=== PATIENT | female | born 1965 | race Caucasian/White ===

== ENCOUNTER 2017-04-01 10:59 | Emergency (ER) | payer MEDICAID, OTHER ==
[~2017-04-01] VITALS: Wt 97.9 kg
[~2017-04-01 10:59] MED LIST: ALBU8.5H5 INH; AZIT250T94 PO; IBUP-1542 PO; MINERAL OIL; MYLANTA
--- NOTE | 2017-04-01 13:07 | ERD ---
ER Documentation Chief Complaint Chief Complaint LEFT HEEL PAIN X2 DAYS, NO INJURY HPI 51-year-old female presents emergency department for left heel pain for 2 days. Stated it is worse on his first step upon waking up in the morning. LMP: 6 months ago. A0. Patient is insisting x-ray of her left foot. Denies headache, dizziness, blurred vision, neck pain, shoulder pain, chest pain , back pain, abdominal pain, nausea, vomiting, constipation, diarrhea, loss of bowel and bladder control, urinary symptoms, recent long travel, recent exposure to any illness, numbness or tingling sensation, recent antibiotic use in the last 3 months, fever, chills. No known drug allergies. No past medical history. No surgeries. Does not take any prescription medication at home. 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 Denies smoking, use of alcoholic beverages, use of illegal drugs. ROS All systems reviewed and are negative except as per history of present illness. Medications Home Meds Active Scripts Tramadol HCl (Tramadol HCl) 50 Mg Tablet, 50 MG PO Q6, #15 TAB Prov:MINI OTT 04/01/17 Ibuprofen* (Motrin*) 800 Mg Tab, 800 MG PO Q8 Y for PAIN AND OR ELEVATED TEMP, # 30 TAB Prov:MINI OTT 04/01/17 Ibuprofen* (Motrin*) 600 Mg Tab, 600 MG PO Q6, #20 TAB Prov:ALISSA OLEARY PA-C 10/28/14 Albuterol Sulfate* (Albuterol Sulfate* HFA) 8.5 Gm Hfa.aer.ad, 1-2 PUFF INH Q4 Y for SHORTNESS OF BREATH, #1 EA Prov:ALISSA OLEARY PA-C 10/28/14 Azithromycin* (Zithromax*) 250 Mg Tablet, 250 MG PO .ZPACK DIRECTED, #6 TAB TAKE 500 MG (2 TABS) THE FIRST DAY THEN 250 MG (1 TAB) DAYS 2-5 Prov:ALISSA OLEARY PA-C 10/28/14 Reported Medications [Mylanta] No Conflict Check 10/01/09 [Mineral Oil] No Conflict Check 10/01/09 Allergies Allergies: Coded Allergies: No Known Allergies (Verified Allergy, Mild, 11/06/12) PMhx/Soc History of Surgery: Yes (APPENDECTOMY, 1999, HERNIA REPAIR 2003,C SECTION X3) Anesthesia Reaction: No Hx Neurological Disorder: No Hx Respiratory Disorders: No Hx Cardiac Disorders: No Hx Psychiatric Problems: No Hx Miscellaneous Medical Probl: No Hx Alcohol Use: No Hx Substance Use: No Hx Tobacco Use: No Physical Exam Vitals Vital Signs Date Time Temp Pulse Resp B/P Pulse Ox O2 Delivery O2 Flow Rate FiO2 04/01/17 11:03 98.2 82 17 135/74 98 Physical Exam Const: [] Head: Atraumatic Eyes: Normal Conjunctiva ENT: Normal External Ears, Nose and Mouth. Neck: Full range of motion..~ No meningismus. Resp: Clear to auscultation bilaterally Cardio: Regular rate and rhythm, no murmurs Abd: Soft, non tender, non distended. Normal bowel sounds Skin: No petechiae or rashes Back: No midline or flank tenderness Ext: No cyanosis, or edema. Right lower extremities unremarkable. Left heel/ plantar area has tenderness to palpation. Good pedal pulse to left foot. Left ankle is good and full range of motion without deformity. Dorsal area of the left foot has no deformity/tenderness/discoloration. No calf tenderness bilaterally. No discoloration of the calf. No calf edema bilaterally. No neurovascular deficits. Patient is ambulatory with steady gait. Neur: Awake and alert Psych: Normal Mood and Affect Results 24 hrs Current Medications Medications (Trade) Dose Ordered Sig/Natalie Route PRN Reason Start Time Stop Time Status Last Admin Dose Admin Ketorolac Tromethamine (Toradol) 60 mg ONCE STAT IM 04/01/17 13:30 04/01/17 13:31 DC 04/01/17 13:48 Procedures/MDM 51-year-old female presents emergency department for left heel pain for 2 days. Stated it is worse on his first step upon waking up in the morning. LMP: 6 months ago. A0. Patient is insisting x-ray of her left foot. Denies headache, dizziness, blurred vision, neck pain, shoulder pain, chest pain , back pain, abdominal pain, nausea, vomiting, constipation, diarrhea, loss of bowel and bladder control, urinary symptoms, recent long travel, recent exposure to any illness, numbness or tingling sensation, recent antibiotic use in the last 3 months, fever, chills. No known drug allergies. No past medical history. No surgeries. Does not take any prescription medication at home. 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 Denies smoking, use of alcoholic beverages, use of illegal drugs. Physical exam: Right lower extremities unremarkable. Left heel/plantar area has tenderness to palpation. Good pedal pulse to left foot. Left ankle is good and full range of motion without deformity. Dorsal area of the left foot has no deformity/tenderness/discoloration. No calf tenderness bilaterally. No discoloration of the calf. No calf edema bilaterally. No neurovascular deficits. Patient is ambulatory with steady gait. Disease process was explained to the patient and family member. Patient and family member verbalized understanding and agreed with the diagnostic test, plan of care, follow-up care. X-ray of the left foot: Plantar calcaneal spur. Otherwise unremarkable images of the left foot. Treatment: Toradol IM. Shaan wrap to left foot. Reevaluation: Denies headache, dizziness, blurry vision, neck pain, shoulder pain, chest pain, back pain, abdominal pain, nausea, vomiting. No episode of emesis in the emergency department. Alert and oriented 4. Speaks full and clear sentences. Respirations even and unlabored. Lung sounds clear to auscultation. Active bowel sounds. There is no right upper/right lower/ epigastric/left upper/left lower abdominal tenderness and light and deep palpation. No peritoneal signs. Ambulatory with steady gait. No neurovascular deficits prior to and after the application of Shaan wrap. No neurological deficits. Differential diagnosis: Fracture versus contusion versus sprain versus plantar fasciitis versus nontraumatic foot pain versus septic arthritis versus rheumatoid arthritis versus osteoarthritis Final diagnosis: Plantar fasciitis, nontraumatic foot pain, plantar calcaneal spur. Prescription: Motrin. Tramadol. Follow-up with PCP in the next 24-48 hours. PCP to refer patient to orthopedic doctor in the next 24-48 hours. PCP to refer patient to a cream separator operator in the next 24-48 hours. Come back here in the emergency department for any new symptoms or any worsening of symptoms. All questions and concerns are answered. Patient and family member verbalized understanding and agreed with the plan of care. Hemodynamically stable on discharge. . Departure Diagnosis: Primary Impression: Plantar fasciitis Additional Impression: Calcaneal spur of left foot Condition: Stable Additional Instructions: Follow-up with PCP in the next 24-48 hours. PCP to refer patient to orthopedic doctor in the next 24-48 hours. PCP to refer patient to a cream separator operator in the next 24-48 hours. Come back here in the emergency department for any new symptoms or any worsening of symptoms. All questions and concerns are answered. Patient and family member verbalized understanding and agreed with the plan of care. MINI OTT Apr 01, 2017 13:07
--- NOTE | 2017-04-01 13:17 | RADRPT ---
PROCEDURE: XR left foot. CLINICAL INDICATION: Left foot pain. TECHNIQUE: 3 views. Frontal, lateral, and oblique. COMPARISON: None. FINDINGS: There is no fracture or dislocation. The soft tissues are normal. Articular surfaces are intact. There is a plantar calcaneal spur There is no lytic or blastic lesion. There is no radiopaque foreign body. IMPRESSION: 1. Plantar calcaneal spur. 2. Otherwise unremarkable images of the left foot. RPTAT: QQ .Chad Woods MD, Date Time Electronically viewed and signed by .Chad Woods MD, on 04/01/2017 13:16 .R/
[2017-04-01] MEDS ORDERED: KETOROLAC 60 MG INJ IM STA (13:30)
[2017-04-01] MEDS ORDERED: TRAM50TA2 PO (13:53)
[2017-04-01] MEDS ORDERED: IBUP800T25 PO (13:53)
== END 2017-04-01 14:11 | disposition home or self-care (01) ==
LOC: FTE 10:59
DX: M72.2 Plantar fascial fibromatosis (principal); M77.32 Calcaneal spur, left foot
CPT/HCPCS: 73630; 96372; J1885; Z7502

== ENCOUNTER 2018-02-05 07:58 | Emergency (ER) | END 2018-02-05 08:54 | disposition home or self-care (01) ==